=== PATIENT | female | born 1955 | race Caucasian/White ===

== ENCOUNTER → 2017-03-06 | Outpatient (REF) | payer BC | LOC: M LAB REF 16:31 | PROVIDERS: ATTEND Ophthalmology | DX: H57.9 Unspecified disorder of eye and adnexa (principal) ==

== ENCOUNTER → 2017-11-15 | Outpatient (CLI) | payer BC ==
--- NOTE | 2017-11-15 13:50 | REPMRS ---
Patient History The patient states she had a clinical breast exam in October 2017. Family history of unknown cancer in mother at age 75. Digital Mammo Screening Bilat: November 15, 2017 - Exam #: [id number] Bilateral CC and MLO view(s) were taken. Technologist: Valeria De La Garza, Technologist Prior study comparison: November 14, 2016, bilateral digital mammo screening bilat performed at [facility]. October 14, 2015, bilateral digital mammo screening bilat performed at [facility]. FINDINGS: The breast tissue is heterogeneously dense. This may lower the sensitivity of mammography. There has been no change in the appearance of the mammogram from the prior studies. There is a moderate amount of residual fibroglandular tissue which is fairly symmetric. There is no interval development of dominant mass, areas of architectural distortion, or clustered microcalcification typical of malignancy. ASSESSMENT: BI-RADS/ACR category 1 mammogram. Negative. Recommendation Routine screening mammogram in 1 year (for women over age 40). This mammogram was interpreted with the aid of an FDA-approved computer-aided dectection system. Electronically Signed By: Mik Velazquez MD 11/15/17 0514
== END ==
LOC: M RAD 09:44
PROVIDERS: ATTEND Nurse Practitioner Adult Health
DX: Z12.31 Encounter for screening mammogram for malignant neoplasm of breast (principal)

== ENCOUNTER → 2018-05-15 | Outpatient (CLI) | payer OTHER | LOC: M EKG 18:09 | DX: Z01.818 Encounter for other preprocedural examination (principal); R03.0 Elevated blood-pressure reading, without diagnosis of hypertension; K76.0 Fatty (change of) liver, not elsewhere classified | CPT/HCPCS: 93005 ==

== ENCOUNTER 2018-05-21 05:48 | Day surgery (SDC) | payer OTHER ==
[2018-05-21] MEDS ORDERED: LIDOCAINE 1% MDV 20ML VIAL SQ (06:00)
[2018-05-21] MEDS ORDERED: LR 1,000 ML IV ×3 (06:00→09:15)
[2018-05-21] MEDS ORDERED: LIDOCAINE 2% INJ 100 MG/5 ML SDV (FOR ANES.) As Ordered (07:20)
[2018-05-21] MEDS ORDERED: PROPOFOL 200 MG/20 ML VIAL As Ordered (07:20)
[2018-05-21] MEDS ORDERED: ROCURONIUM BROMIDE 50 MG/5 ML VIAL As Ordered (07:20)
[2018-05-21] MEDS ORDERED: MIDAZOLAM INJ 2 MG/2 ML VIAL (J2250) As Ordered (07:21)
[2018-05-21] MEDS ORDERED: fentaNYL 250 MCG/5 ML INJECTION (J3010) As Ordered (07:21)
[2018-05-21] MEDS ORDERED: SCOPOLAMINE 1MG TRANSDERMAL PATCH As Ordered (07:26)
[2018-05-21] MEDS: SCOPOLAMINE 1MG TRANSDERMAL PATCH TOP (07:26)
[2018-05-21] MEDS ORDERED: dexameTHASONE 4 MG/ML 1ML VIAL (J1100) As Ordered ×2 (08:14→08:15)
[2018-05-21] MEDS ORDERED: METOCLOPRAMIDE INJ 10MG/2ML VIAL (J2765) As Ordered (08:14)
[2018-05-21] MEDS ORDERED: KETOROLAC 60 MG/2 ML VIAL (J1885) As Ordered (08:14)
[2018-05-21] MEDS ORDERED: ONDANSETRON 4MG/2ML VIAL (J2405) As Ordered (08:14)
[2018-05-21] MEDS ORDERED: GLYCOPYRROLATE INJ 0.2 MG/ML 2 ML VIAL As Ordered (08:15)
[2018-05-21] MEDS ORDERED: NEOSTIGMINE 10 MG/10 ML VIAL (J2710) As Ordered (08:15)
[2018-05-21] MEDS: BUPIVACAINE HCL 0.25% 30 ML VIAL As Ordered (08:39)
[2018-05-21] MEDS ORDERED: MORPHINE 10 MG/ML 1ML VIAL (J2270) IV (09:15)
[2018-05-21] MEDS ORDERED: ONDANSETRON 4MG/2ML VIAL (J2405) IV (09:15)
[2018-05-21] MEDS ORDERED: NORCO, ANEXSIA 5/325MG TABLET (HYDROcodone/ACETAMINOPHEN) PO (09:15)
[2018-05-21] MEDS ORDERED: fentaNYL 100 MCG/2 ML INJECTION (J3010) IV (09:15)
[2018-05-21] MEDS ORDERED: ACETAMINOPHEN TAB 650MG DOSE (2X325MG) PO (09:15)
[2018-05-21] MEDS ORDERED: IBUPROFEN 600 MG TAB PO (09:15)
[2018-05-21] MEDS ORDERED: ACETAMINOPH W/CODEINE #3 TAB UD PO (09:15)
== END 2018-05-21 10:45 | disposition home or self-care (01) ==
LOC: M SDC 05:48
DX: K80.18 Calculus of gallbladder with other cholecystitis without obstruction (principal); I10 Essential (primary) hypertension; Z79.82 Long term (current) use of aspirin; Z79.899 Other long term (current) drug therapy; Z88.2 Allergy status to sulfonamides; Z88.5 Allergy status to narcotic agent
CPT/HCPCS: 47562

== ENCOUNTER → 2019-12-02 | Outpatient (CLI) | payer MEDICARE ==
[~2019-12-02] MED LIST: ASPI81TA26 PO; DOXY50CA PO; FISH100049 PO; LISI10TA15 PO; METO1TAB7 PO; OMEP-172; POTA10CA32; TURM500C PO
--- NOTE | 2019-12-02 17:08 | REPMRS ---
Patient History The patient states she had a clinical breast exam in October 2020.Family history of unknown cancer at age 75 in mother. Digital Woman Screen Mammo: December 02, 2019 - Exam #: [id number] Bilateral CC and MLO view(s) were taken. Technologist: Valeria De La Garza, Technologist Prior study comparison: November 28, 2018, bilateral digital mammo screening bilat, performed at [facility]. November 15, 2017, bilateral digital mammo screening bilat, performed at [facility]. November 14, 2016, bilateral digital mammo screening bilat, performed at [facility]. FINDINGS: The breast tissue is heterogeneously dense. This may lower the sensitivity of mammography. There is a moderate amount of heterogeneously dense fibroglandular tissue which is fairly symmetric. There is no interval development of dominant mass, architectural distortion, or grouped microcalcification typical of malignancy. There has been no change in the appearance of the mammogram from the prior studies. 3-D tomosynthesis shows no additional findings. Assessment: BI-RADS/ACR category 1 mammogram. Negative Mammogram. Recommendation Routine screening mammogram of both breasts in 1 year (for women over age 40). This patient's Lifetime Breast Cancer RIsk is estimated at 6.1 %. This mammogram was interpreted with the aid of an FDA-approved computer-aided dectection system. Electronically Signed By: Francisco Yin MD 12/02/19 [id number]
== END ==
LOC: M WHC 16:25
DX: Z12.31 Encounter for screening mammogram for malignant neoplasm of breast (principal); Z80.9 Family history of malignant neoplasm, unspecified

== ENCOUNTER → 2020-01-05 | Outpatient (CLI) | payer MEDICARE ==
[~2020-01-05] MED LIST changes: -OMEP-172; +OMEP1CAP73
== END ==
LOC: M WHC 09:26
DX: Z78.0 Asymptomatic menopausal state (principal)

== ENCOUNTER → 2020-09-08 | Outpatient (REF) | payer MEDICARE, BC | LOC: M SFHCPLAZ 16:53 | PROVIDERS: ATTEND Physician Assistant | DX: L82.1 Other seborrheic keratosis (principal) | CPT/HCPCS: 11102; 88305; G0463 ==

== ENCOUNTER → 2020-12-06 | Outpatient (CLI) | payer MEDICARE ==
--- NOTE | 2020-12-06 11:05 | REPMRS ---
Patient History The patient states she had a clinical breast exam in October 2020.Family history of unknown cancer at age 75 in mother. 3D TOMOSYNTHESIS WAS PERFORMED. The Jessee Smith lifetime risk for breast cancer is 5.8%. Volpara breast density c. Digital Woman Screen Mammo: December 06, 2020 - Exam #: [id number] Bilateral CC and MLO view(s) were taken. Technologist: Valeria De La Garza, Technologist Prior study comparison: December 02, 2019, bilateral digital woman screen mammo performed at [facility]. November 28, 2018, bilateral digital mammo screening bilat, performed at [facility]. FINDINGS: The breast tissue is heterogeneously dense. This may lower the sensitivity of mammography. There has been no change in the appearance of the mammogram from the prior studies. There is a moderate amount of residual fibroglandular tissue which is fairly symmetric. There is no interval development of dominant mass, areas of architectural distortion, or clustered microcalcification typical of malignancy. Assessment: BI-RADS/ACR category 1 mammogram. Negative Mammogram. Recommendation Routine screening mammogram in 1 year (for women over age 40). This mammogram was interpreted with the aid of an FDA-approved computer-aided dectection system. Electronically Signed By: Mik Velazquez MD 12/06/20 [id number]
== END ==
LOC: M WHC 10:21
PROVIDERS: ATTEND Obstetrics & Gynecology
DX: Z12.31 Encounter for screening mammogram for malignant neoplasm of breast (principal)

== ENCOUNTER → 2022-09-18 | Outpatient (REF) | payer MEDICARE ==
[~2022-09-18] MED LIST changes: -LISI10TA15 PO; +LISI10TA24 PO
== END ==
LOC: M SFHCDERM 17:10
PROVIDERS: ATTEND Physician Assistant
DX: L82.1 Other seborrheic keratosis (principal)

== ENCOUNTER → 2023-03-21 | Outpatient (REF) | payer MEDICARE ==
[~2023-03-21] MED LIST changes: -POTA10CA32; +POTA10CA33
== END ==
LOC: M SFHCWAGY 13:31
PROVIDERS: ATTEND Nurse Practitioner Family
DX: Z12.4 Encounter for screening for malignant neoplasm of cervix (principal); R87.615 Unsatisfactory cytologic smear of cervix
CPT/HCPCS: 87624; G0123

== ENCOUNTER → 2023-03-22 | Outpatient (CLI) | payer MEDICARE | LOC: M WHC 08:27 | PROVIDERS: ATTEND Nurse Practitioner Family | DX: Z12.31 Encounter for screening mammogram for malignant neoplasm of breast (principal) ==

== ENCOUNTER → 2023-04-04 | Outpatient (REF) | payer MEDICARE | LOC: M SFHCWAGY 13:03 | PROVIDERS: ATTEND Nurse Practitioner Family | DX: Z12.4 Encounter for screening for malignant neoplasm of cervix (principal); R87.615 Unsatisfactory cytologic smear of cervix; R87.618 Other abnormal cytological findings on specimens from cervix uteri | CPT/HCPCS: 87624; G0123 ==

== ENCOUNTER 2023-11-01 09:33 | Day surgery (SDC) | payer MEDICARE ==
[~2023-11-01] VITALS: Ht 154.9 cm; Wt 64.4 kg
[~2023-11-01 09:33] MED LIST changes: +LIDOCAINE 2% 100MG/5ML SDV (FOR ANES.) As Ordered ONE; +MULT-90 PO; +NS 1,000 ML IV ONE; +OMEG10002 PO; +OMEP-173 PO; -POTA10CA33; +POTA10CA60 PO; +propofoL 200 MG/20 ML VIAL As Ordered ONE
[2023-11-01 10:00] VITALS: TEMP 97.2
[2023-11-01 11:05] VITALS: BP 120/64; O2SAT 98
== END 2023-11-01 11:12 | disposition home or self-care (01) ==
LOC: M OPP 09:33
PROVIDERS: ATTEND Surgery
DX: Z86.010 Personal history of colon polyps (principal); K57.30 Diverticulosis of large intestine without perforation or abscess without bleeding; K55.20 Angiodysplasia of colon without hemorrhage; Z79.2 Long term (current) use of antibiotics; Z79.82 Long term (current) use of aspirin; Z79.899 Other long term (current) drug therapy; Z88.2 Allergy status to sulfonamides; Z88.5 Allergy status to narcotic agent

== ENCOUNTER → 2024-03-25 | Outpatient (CLI) | payer MEDICARE ==
[~2024-03-25] MED LIST changes: -LIDOCAINE 2% 100MG/5ML SDV (FOR ANES.) As Ordered ONE; -NS 1,000 ML IV ONE; -propofoL 200 MG/20 ML VIAL As Ordered ONE
== END ==
LOC: M WHC 08:29
PROVIDERS: ATTEND Nurse Practitioner Family
DX: Z12.31 Encounter for screening mammogram for malignant neoplasm of breast (principal)

== ENCOUNTER → 2025-03-26 | Outpatient (CLI) | payer MEDICARE ==
[~2025-03-26] MED LIST changes: -POTA10CA60 PO; +POTA10CA70 PO
== END ==
LOC: M WHC 08:39
PROVIDERS: ATTEND Nurse Practitioner Family
DX: Z12.31 Encounter for screening mammogram for malignant neoplasm of breast (principal); Z13.820 Encounter for screening for osteoporosis; N95.1 Menopausal and female climacteric states; M85.851 Other specified disorders of bone density and structure, right thigh; M85.852 Other specified disorders of bone density and structure, left thigh; R92.333 Mammographic heterogeneous density, bilateral breasts